=== PATIENT | female | born 2000 | race American Indian/Alaskan Native ===

== ENCOUNTER 2019-03-08 16:55 | Emergency (ER) | payer SELFPAY ==
[2019-03-08 17:04] VITALS: BP 127/68
== END 2019-03-08 17:36 | disposition left against medical advice (07) ==
LOC: ED 16:55
DX: K08.89 Other specified disorders of teeth and supporting structures (principal); Z53.21 Procedure and treatment not carried out due to patient leaving prior to being seen by health care provider

== ENCOUNTER 2019-03-10 13:40 | Emergency (ER) | payer OTHER ==
[2019-03-10 14:08] VITALS: BP 113/65
--- NOTE | 2019-03-10 14:09 | Emergency Department Report ---
Chief Complaint: Dental/Oral Stated Complaint: TOOTHACHE/HEADACHE/DIZZY Time Seen by Provider: 03/10/19 14:06 - HPI History of Present Illness: Pt presents left, lower sided dental pain that began a month ago has noticed some mild swelling on the left side had a filling on the tooth two years ago, states that if she had pain again would need tooth extraction no fever no N/V/D mother states they are trying to find a dentist here hx of functional murmur no daily meds no allergies to medications MSE screening note: Focused history performed ED Disposition for MSE Condition: Stable
--- NOTE | 2019-03-10 14:10 | Emergency Department Report ---
ED ENT HPI - General Chief complaint: Dental/Oral Stated complaint: TOOTHACHE/HEADACHE/DIZZY Time Seen by Provider: 03/10/19 14:06 Source: patient Mode of arrival: Ambulatory Limitations: No Limitations - History of Present Illness Initial comments: Pt is a 18 yo female who presents to the ED with left, lower sided dental pain that began a month ago. Pt states she has noticed some mild swelling on the left side . Pt reports she had a filling on the tooth two years ago, states that if she had pain again would need tooth extraction. She denies any fever or N/V/D. mother states they are trying to find a dentist locally. hx of functional murmur, no daily meds. no allergies to medications - Related Data Previous Rx's Medication Instructions Recorded Last Taken Type Acetaminophen/Codeine [Tylenol 1 tab PO Q6H PRN #10 tab 03/10/19 Unknown Rx /Codeine # 3 tab] Amoxicillin/K Clav Tab [Augmentin 1 tab PO BID 7 Days #14 tab 03/10/19 Unknown Rx 875 mg] Ibuprofen 600 mg PO Q6HR PRN #20 tablet 03/10/19 Unknown Rx Allergies Allergy/AdvReac Type Severity Reaction Status Date / Time No Known Allergies Allergy Verified 03/10/19 13:42 ED Dental HPI - General Chief complaint: Dental/Oral Stated complaint: TOOTHACHE/HEADACHE/DIZZY Time Seen by Provider: 03/10/19 14:06 Source: patient Mode of arrival: Ambulatory Limitations: No Limitations - Related Data Previous Rx's Medication Instructions Recorded Last Taken Type Acetaminophen/Codeine [Tylenol 1 tab PO Q6H PRN #10 tab 03/10/19 Unknown Rx /Codeine # 3 tab] Amoxicillin/K Clav Tab [Augmentin 1 tab PO BID 7 Days #14 tab 03/10/19 Unknown Rx 875 mg] Ibuprofen 600 mg PO Q6HR PRN #20 tablet 03/10/19 Unknown Rx Allergies Allergy/AdvReac Type Severity Reaction Status Date / Time No Known Allergies Allergy Verified 03/10/19 13:42 ED Review of Systems ROS: Stated complaint: TOOTHACHE/HEADACHE/DIZZY Other details as noted in HPI Comment: All other systems reviewed and negative ED Past Medical Hx - Past Medical History Previous Medical History?: No - Surgical History Past Surgical History?: No - Social History Smoking Status: Never Smoker Substance Use Type: None - Medications Home Medications: Home Medications Medication Instructions Recorded Confirmed Last Taken Type Acetaminophen/Codeine [Tylenol 1 tab PO Q6H PRN #10 tab 03/10/19 Unknown Rx /Codeine # 3 tab] Amoxicillin/K Clav Tab [Augmentin 1 tab PO BID 7 Days #14 tab 03/10/19 Unknown Rx 875 mg] Ibuprofen 600 mg PO Q6HR PRN #20 tablet 03/10/19 Unknown Rx ED Physical Exam - General Limitations: No Limitations General appearance: alert, in no apparent distress - Head Head exam: Present: atraumatic, normocephalic - Eye Eye exam: Present: normal appearance - ENT ENT exam: Present: other (pt has fillings present upper bilaterally, no obvious induration, no obvious erythema, no obvious fluctuance) - Respiratory Respiratory exam: Present: normal lung sounds bilaterally. Absent: respiratory distress, wheezes, rales, rhonchi, stridor, chest wall tenderness, accessory muscle use, decreased breath sounds, prolonged expiratory - Cardiovascular Cardiovascular Exam: Present: regular rate, normal rhythm, normal heart sounds. Absent: systolic murmur, diastolic murmur, rubs, gallop - Neurological Exam Neurological exam: Present: alert, oriented X3 - Psychiatric Psychiatric exam: Present: normal affect, normal mood - Skin Skin exam: Present: warm, dry, intact ED Course Vital Signs 03/10/19 14:06 Temperature 98.5 F Pulse Rate 69 Respiratory 18 Rate Blood Pressure 113/65 O2 Sat by Pulse 100 Oximetry ED Medical Decision Making - Medical Decision Making Pt is a 18 yo female who presents to the ED with left, lower sided dental pain that began a month ago. Pt states she has noticed some mild swelling on the left side . Pt reports she had a filling on the tooth two years ago, states that if she had pain again would need tooth extraction. She denies any fever or N/V/D. mother states they are trying to find a dentist locally. hx of functional murmur, no daily meds. no allergies to medications. pt has fillings present upper bilaterally. no obvious dental abscess identified. WIll give pt pain medication and abx. take all medication as prescribed. Advised to follow up with dentist MARANDA. Pt given list of community resources and dental clinics. Advised to follow up with PCP in the next 2-3 days. Return to the ED for any new or worsening symptoms. Critical care attestation.: If time is entered above; I have spent that time in minutes in the direct care of this critically ill patient, excluding procedure time. ED Disposition Clinical Impression: Pain, dental, Dental infection Disposition: TO HOME OR SELFCARE Is pt being admited?: No Does the pt Need Aspirin: No Condition: Stable Instructions: Dental Caries (ED) Additional Instructions: Please follow up with a dentist MARANDA. Will give list of community dental clinics. Please take all medication as prescribed. Return to the emergency room for any new or worsening symptoms. Prescriptions: Amoxicillin/K Clav Tab [Augmentin 875 mg] 1 tab PO BID 7 Days #14 tab Ibuprofen 600 mg PO Q6HR PRN #20 tablet PRN Reason: Pain, Moderate (4-6) Acetaminophen/Codeine [Tylenol /Codeine # 3 tab] 1 tab PO Q6H PRN #10 tab PRN Reason: Pain , Severe (7-10) Referrals: LORI TORIBIO MD [Primary Care Provider] - 2-3 Days Time of Disposition: 14:52 Print Language: MONEGAS[place]
== END 2019-03-10 15:28 | disposition home or self-care (01) ==
LOC: ED 13:40
DX: K04.7 Periapical abscess without sinus (principal)